=== PATIENT | female | born 1985 | race Caucasian/White ===

== ENCOUNTER 2021-04-09 20:04 | Emergency (ER) | payer SELFPAY ==
[2021-04-09 20:20] VITALS: BMI 34.4
[2021-04-09 20:39] LABS: BASO % 0.4 % (0-2.0); EOS % 1.4 % (0-4.5); HEMOGLOBIN 15.5 GM/dL (10.7-15.3); LYMPH % 36.3 % (8-40); MCH 33.4 pg (25.7-33.7); MCHC 34.3 g/dl (32.0-36.0); MEAN CELL VOLUME 97.4 fl (80-96); MEAN PLT VOLUME 8.3 fl (7.5-11.1); MONO % 7.9 % (3.8-10.2); PLATELET COUNT 250 10^3/uL (134-434); RBC 4.62 M/mm3 (3.60-5.2); VENOUS O2 SATURATION 86.6 % (70-80); VENOUS PH 7.289 (7.310-7.410); WHITE BLOOD COUNT 8.2 K/mm3 (4.0-10.0)
[2021-04-09 20:43] LABS: PH,URINE 5.5 (5.0-8.0); URINE APPEARANCE CLEAR; URINE BILIRUBIN NEGATIVE (NEGATIVE); URINE COLOR YELLOW; URINE GLUCOSE (UA) NEGATIVE (NEGATIVE); URINE KETONE NEGATIVE (NEGATIVE); URINE LEUK ESTERASE NEGATIVE (NEGATIVE); URINE NITRITE NEGATIVE (NEGATIVE); URINE PROTEIN NEGATIVE (NEGATIVE); URINE UROBILINOGEN 0.2 mg/dL (0.2-1.0)
[2021-04-09 20:45] LABS: HCG,QUALITATIVE URINE Negative
[2021-04-09 20:51] LABS: INR 0.97 (0.83-1.09); PROTHROMBIN TIME (PATIENT) 11.8 SEC (9.7-13.0)
[2021-04-09 20:52] LABS: CHLORIDE 114 mmol/L (98-107); SODIUM 144 mmol/L (136-145)
[2021-04-09 20:53] LABS: COCAINE, UR NEGATIVE (NEGATIVE); OPIATES, URI NEGATIVE (NEGATIVE); PHENCYCLIDINE,URINE NEGATIVE (NEGATIVE)
[2021-04-09 20:54] LABS: ACTIVATED PTT 30.9 SECONDS (25.2-36.5); CALCIUM 8.5 mg/dL (8.5-10.1)
[2021-04-09 20:55] LABS: ALBUMIN 4.1 g/dl (3.4-5.0); ANION GAP 12 MMOL/L (8-16); BLOOD UREA NITROGEN 9.6 mg/dL (7-18); CO2 19 mmol/L (21-32); GLUCOSE,RANDOM 77 mg/dL (74-106); MAGNESIUM 2.5 mg/dL (1.8-2.4)
[2021-04-09 20:58] LABS: CREATININE 0.8 mg/dL (0.55-1.3); SGOT/AST 15 U/L (15-37); SGPT/ALT 28 U/L (13-61)
[2021-04-09 21:00] LABS: BILIRUBIN,TOTAL 0.6 mg/dL (0.2-1); LACTIC ACID 2.4 mmol/L (0.4-2.0); TOT PROT 8.4 g/dl (6.4-8.2)
[2021-04-09 21:01] LABS: ALK PHOS 53 U/L (45-117)
[2021-04-09 21:21] LABS: URINE AMPHETAMINES POSITIVE (NEGATIVE); URINE BARBITURATES NEGATIVE (NEGATIVE); URINE BENZODIAZEPINES POSITIVE (NEGATIVE)
[2021-04-09 22:48] LABS: METHADONE, UR NEGATIVE (NEGATIVE)
[2021-04-09 23:41] VITALS: BP 128/88; PULSE 97
== END 2021-04-09 23:43 | disposition home or self-care (01) ==
LOC: JER 20:04
DX: F10.920 Alcohol use, unspecified with intoxication, uncomplicated (principal)
CPT/HCPCS: 36415; 70450-TC; 71045-TC-FY; 80053; 80307; 81003; 82550; 82803; 82962; 83605; 83735; 84484; 84703; 85025; 85610; 85730; 86850; 86900; 86901; 93005; 93010; 99283-25

== ENCOUNTER 2022-03-02 00:12 | Emergency (ER) | payer SELFPAY ==
[2022-03-02 00:41] VITALS: BP 144/89; PULSE 103; TEMP 98.6; BMI 29.9
== END 2022-03-02 01:30 | disposition home or self-care (01) ==
LOC: JER 00:12
DX: F10.129 Alcohol abuse with intoxication, unspecified (principal)
CPT/HCPCS: 99281-25